=== PATIENT | male | born 1995 | race Caucasian/White ===

== ENCOUNTER 2017-07-04 07:28 | Inpatient (IN) | payer BC, OTHER ==
[~2017-07-04] VITALS: Ht 175.3 cm; Wt 74.8 kg
[2017-07-04] MEDS ORDERED: LORAZEPAM 1 MG TABLET PO PRN ×2 (22:15)
[2017-07-04] MEDS ORDERED: LOPERAMIDE HCL 2 MG CAPSULE PO PRN ×2 (22:15)
[2017-07-04] MEDS ORDERED: ONDANSETRON 4 MG/2 ML VIAL IM PRN (22:15)
[2017-07-04] MEDS ORDERED: MAGNESIUM HYDROXIDE 30 ML LIQUID UDC PO PRN (22:15)
[2017-07-04] MEDS ORDERED: LORAZEPAM 2 MG/1 ML VIAL IM PRN (22:15)
[2017-07-04] MEDS ORDERED: CLONIDINE HCL 0.1 MG TABLET PO PRN (22:15)
[2017-07-04] MEDS ORDERED: MAG HYDROX/AL HYDROX/SIMETH 30 ML LIQUID UDC PO PRN (22:15)
[2017-07-04] MEDS ORDERED: THIAMINE HCL 200 MG/2 ML VIAL IM ONE (22:15)
[2017-07-04] MEDS ORDERED: MIRALAX 17 GM POWD.PACK PO PRN (22:15)
[2017-07-04] MEDS ORDERED: diphenhydrAMINE 50 MG CAPSULE PO PRN (22:15)
[2017-07-04 22:50] VITALS: BP 133/84
--- NOTE | 2017-07-04 22:50 | NUR ---
INTAKE ASSESSMENT BP:133/84, HR:65, RR:16, SpO2:96% on RA, T:98.0 Pt is in stable condition and is able to be admitted on the unit. Unit protocols regarding medications and vital signs every 4 hours were explained. Pt verbalized understanding. Will continue admission upon arrival on the unit.
[2017-07-04 23:03] LABS: BASOPHILS % (AUTO) 0.5 % (0.0-2.0); EOSINOPHILS # (AUTO) 0.1 K/uL (0.0-0.7); EOSINOPHILS % (AUTO) 1.7 % (0.0-7.0); HEMATOCRIT 41.7 % (36.7-47.1); HEMOGLOBIN 14.5 g/dL (12.5-16.3); LYMPHOCYTES # (AUTO) 2.4 K/uL (20.0-40.0); LYMPHOCYTES % (AUTO) 31.2 % (20.5-51.5); MEAN CORPUSCULAR HEMOGLOBIN 30.6 uug (23.8-33.4); MEAN CORPUSCULAR HGB CONC 35 g/dL (32.5-36.3); MEAN CORPUSCULAR VOLUME 87.9 fL (73.0-96.2); MONOCYTES # (AUTO) 0.8 K/uL (2.0-10.0); MONOCYTES % (AUTO) 10.4 % (0.0-11.0); NEUTROPHILS # (AUTO) 4.3 K/uL (1.8-8.9); NEUTROPHILS % (AUTO) 56.2 % (38.5-71.5); PLATELET COUNT (AUTO) 310 K/uL (152-348); RED BLOOD CELL COUNT(AUTO) 4.74 MIL/uL (4.06-5.63); WHITE BLOOD COUNT (AUTO) 7.7 K/uL (3.6-10.2)
[2017-07-04 23:23] LABS: ALANINE AMINOTRANSFERASE 47 U/L (16-63); ALKALINE PHOSPHATASE 82 U/L (50-136); AMYLASE 61 U/L (25-115); ASPARTATE AMINOTRANSFERASE 33 U/L (15-37); BILIRUBIN,TOTAL 0.6 mg/dL (0.2-1.0); CARBON DIOXIDE 31 mmol/L (21-32); CHLORIDE 100 mmol/L (98-107); CREATININE 0.9 mg/dL (0.6-1.3); GLUCOSE 105 mg/dL (74-106); MAGNESIUM 1.7 mg/dL (1.8-2.4); POTASSIUM 3.9 mmol/L (3.5-5.1); TOTAL PROTEIN, SERUM 7.8 g/dL (6.4-8.2); UREA NITROGEN, BLOOD 14 mg/dL (7-18)
[2017-07-04] MEDS ORDERED: LORAZEPAM 1 MG TABLET PO SCH (23:30)
[2017-07-04 23:34] LABS: ETHANOL < 3 MG/DL (0-0)
[2017-07-04 23:37] LABS: *AMPHETAMINE, URINE NEGATIVE (NEGATIVE); *BARBITURATE, URINE NEGATIVE (NEGATIVE); *CANNABINOID, URINE POSITIVE (NEGATIVE); *COCCAINE, URINE POSITIVE (NEGATIVE); *OPIATE, URINE NEGATIVE (NEGATIVE); *PHENCYCLIDINE SCREEN,URINE NEGATIVE (NEGATIVE)
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
[2017-07-04] MEDS: IBUPROFEN 400 MG TABLET PO PRN (23:46)
[2017-07-04] MEDS: ONDANSETRON ODT 4 MG TAB.RAPDIS SL PRN (23:47)
--- NOTE | 2017-07-04 23:47 | NUR ---
PRN ZOFRAN/MOTRIN Pt complains of nausea and bilateral foot pain 7/10. No open wounds, or swelling noted on pt's feet. PRN Zofran and Motrin administered as ordered. Will continue to monitor effectiveness.
[2017-07-05] VITALS: BP 135/81
[2017-07-05] MEDS ORDERED: CLON2TAB4 PO (00:47)
--- NOTE | 2017-07-05 00:47 | NUR ---
PRN REASSESSMENT Medications effective. Pt is lying in bed with eyes closed noted to be asleep. No facial grimacing noted. Breathing even and unlabored. Safety measures in place. Will continue to monitor.
[2017-07-05 04:00] VITALS: BP 125/78
--- NOTE | 2017-07-05 07:03 | NUR ---
END OF SHIFT Pt is a 22 year old male patient. He remains alert and oriented x4. He was noted to be drowsy, anxious, restless, agitated, nauseous and fatigued during shift. He received PRN Motrin and Zofran. He slept a total of 5 hrs, Intake: 355mL, Void: x1, BM:0, CIWA:9. Breathing is even and unlabored. Safety measures in place. Endorsed to AM shift.
--- NOTE | 2017-07-05 07:45 | NUR ---
START OF SHIFT Endorse rcvd from ongoing nurse, client is in bed, under the blankets, in a position, client is a/o x 3, he presents with flushed face, moist skin, fine tremors, light bothers him. He stated, I feel like shit, my feet are killing me, I cant stop moving them, I am cold and sweaty, have no appetite and my head feels weird, like a balloon, just really weird, and Im in pain when I turn on my left side Client noted with large purple, yellowish bruise on L elbow with a dry scab in the middle of it. Client able to perform full range of motion, but states, I am not able to lift anything, because it gets to painful. Encourage client to increase PO fluid as tolerated to maintain rehydration and facilitate detox. Encourage client to attend group therapy for skills to maintain sober. Overnight care PRN Zofran 4mg SL for nausea, Motrin 600mg PO for pain, noted effective. Client slept 5 hrs. Last CIWA 9 @ 2400. Client admitted for medically supervised withdrawal from alcohol and benzodiazepines, 4 day Ativan taper to start this am at 0900. Call light within reach. Seizure precautions rendered.
[2017-07-05 08:00] VITALS: BP 123/75
[2017-07-05] MEDS ORDERED: MAGNESIUM OXIDE 400 MG TABLET PO ONE (09:00)
[2017-07-05] MEDS ORDERED: TUBERCULIN,PURIF.PROT.DERIV. 5 TU/0.1 ML TEST ID ONE (09:00)
[2017-07-05] MEDS ORDERED: LORAZEPAM 1 MG TABLET PO SCH (09:00)
--- NOTE | 2017-07-05 09:36 | NUR ---
PPD test administered to L forearm, client tolerated well.
[2017-07-05] MEDS: FOLIC ACID 1 MG TABLET PO SCH (09:37)
[2017-07-05] MEDS: MULTIVITAMINS,THERAPEUTIC TABLET PO SCH (09:37)
[2017-07-05] MEDS: THIAMINE HCL 100 MG TABLET PO SCH (09:37)
--- NOTE | 2017-07-05 09:46 | NUR ---
PRN Ativan 1mg PO administered for anxiety, irritability, nausea, fine tremors, sweats, sensitivity to light and noise, CIWA 12. Call light within reach.
--- NOTE | 2017-07-05 10:46 | NUR ---
Reassess PRN Ativan 1mg, client is in bed, watching TV, he appears less anxious. He reports feeling a little bit better. CIWA 5.
[2017-07-05 12:00] VITALS: BP 118/73
--- NOTE | 2017-07-05 13:19 | NUR ---
XR of L elbow left elbow contusion; rule out fracture, dislocation
[2017-07-05] MEDS: LORAZEPAM 1 MG TABLET PO SCH ×2 (16:20→20:41)
[2017-07-05 16:24] VITALS: BP 99/57
[2017-07-05] MEDS: IBUPROFEN 400 MG TABLET PO PRN (16:25)
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
--- NOTE | 2017-07-05 17:25 | NUR ---
Reassess PRN Maalox 30mg, Motrin 400mg client reports relief from heartburn and pain 0/10 on L side of head.
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
--- NOTE | 2017-07-05 19:23 | NUR ---
END OF SHIFT Endorsed client to incoming nurse, client is a/o x 4, he remained in his room, prefers dim light, he continues to present with anxious mood, flat affect, fine tremors, chills, sweats, restless legs, and decrease appetite. Adequate PO fluid intake 1182mL, void x 2. LBM 07/04/17. Client not compliant with group therapy d/t withdrawal symptoms. Last CIWA 14 @ 1600. PRN maalox 30ml PO for heartburn, Motrin for pain L side of scalp, noted effective. Call light within reach.
--- NOTE | 2017-07-05 19:30 | NUR ---
START OF SHIFT Received 22 year old male patient. Pt noted to be anxious, worried, and depressed. Pt complains of nausea and appetite loss and stated " I can't keep anything down." Pt also complains of headache, and pins and needles on both feet. Per endorsement, pt received X ray to left elbow. Resulted with swelling, no fracture or dislocation was identified. Pt received PRN Maalox. Pt is alert and oriented x4, breathing is even and unlabored. Safety measures in place. Will continue to monitor.
[2017-07-05 20:00] VITALS: BP 140/81
[2017-07-05] MEDS: GABAPENTIN 300 MG CAPSULE PO SCH (20:40)
[2017-07-05] MEDS: QUETIAPINE FUMARATE 25 MG TABLET PO PRN (20:41)
[2017-07-05] MEDS: ONDANSETRON ODT 4 MG TAB.RAPDIS SL PRN (20:42)
[2017-07-05] MEDS: ACETAMINOPHEN 325 MG TABLET PO PRN (20:42)
--- NOTE | 2017-07-05 20:42 | NUR ---
PRN SEROQUEL, TYLENOL, ZOFRAN Pt complains of inability to sleep, headache 8/10 and nausea with one episode of vomiting. PRN Seroquel, Tylenol and Zofran administered as ordered. Safety measures in place. Will continue to monitor effectiveness.
--- NOTE | 2017-07-05 21:42 | NUR ---
PRN REASSESSMENT PRN medications effective. Pt is lying in bed with eyes closed noted to be asleep. Breathing is even and unlabored. Safety measures in place. Will continue to monitor.
[2017-07-06] VITALS: BP 112/61
--- NOTE | 2017-07-06 04:00 | NUR ---
VITALS REFUSED, CIWA DEFERRED 0400 vitals refused by pt. CIWA deferred d/t pt lying in bed with eyes closed noted to be asleep. Breathing is even and unlabored, safety measures in place. Will continue to monitor.
--- NOTE | 2017-07-06 07:04 | NUR ---
END OF SHIFT Pt is a 22 year old male patient. Pt remains alert and oriented x4. Pt had complaints of nausea with episode of vomiting, headache, anxiety, and insomnia. He received PRN Seroquel, Zofran and Tylenol. He slept a total of 9 hrs, Intake: 1,296mL, Void: x1, BM:0, CIWA: 11. Breathing is even and unlabored. Safety measures in place. Endorsed to AM shift.
[2017-07-06 07:06] LABS: HEPATITIS B SURFACE AG Negative (Negative)
--- NOTE | 2017-07-06 07:34 | NUR ---
Start of shift- Rcvd endorsement from ongoing nurse. 22 y/o male admitted for benzo, cocaine, and marijuana dependency. Last CIWA @1999 was 11. Pt slept 9 hours. Pt arousable to verbal commands, he is in bed. Resp even and unlabored. Last night he had c/o nausea with episode of vomiting, headache, anxiety, and insomnia. He received PRN Seroquel, Zofran and Tylenol. Pt had uneventful night. NKA, FULL CODE, regular diet. All safety measures in place. Seizure and fall precautions. Bed lowest/locked position, siderails upX2 padded, call light within reach. Will continue to monitor.
[2017-07-06 08:00] VITALS: BP 115/74
[2017-07-06] MEDS: FLUOXETINE HCL 20 MG CAPSULE PO SCH (08:25)
[2017-07-06] MEDS: FOLIC ACID 1 MG TABLET PO SCH (08:25)
[2017-07-06] MEDS: GABAPENTIN 300 MG CAPSULE PO SCH ×3 (08:26→20:41)
[2017-07-06] MEDS: LORAZEPAM 1 MG TABLET PO SCH ×3 (08:26→20:41)
[2017-07-06] MEDS: THIAMINE HCL 100 MG TABLET PO SCH (08:26)
[2017-07-06] MEDS: MULTIVITAMINS,THERAPEUTIC TABLET PO SCH (08:27)
[2017-07-06] MEDS ORDERED: LORAZEPAM 1 MG TABLET PO SCH (09:00)
[2017-07-06 12:00] VITALS: BP_SYST 125; BP_SYST 134; BP_DIAS 70; BP_DIAS 73
--- NOTE | 2017-07-06 12:15 | NUR ---
PRN Motrin 400 mg PO pain. c/o headache #8/
[2017-07-06] MEDS: IBUPROFEN 400 MG TABLET PO PRN (12:17)
--- NOTE | 2017-07-06 12:24 | NUR ---
CLient prompted to go to groups.
[2017-07-06] MEDS: QUETIAPINE FUMARATE 25 MG TABLET PO PRN ×3 (12:51→20:42)
--- NOTE | 2017-07-06 12:53 | NUR ---
PRN Seroquel 25 mg po for agitation. Pt reports feeling servely agitated and was seen crying.
--- NOTE | 2017-07-06 13:10 | NUR ---
Reassess Viry pt states headache pain now #5-6/10. He feels a little better.
--- NOTE | 2017-07-06 13:55 | NUR ---
Reassess Seroquel, pt states he feels better less agitated. Medication effective.
[2017-07-06 16:00] VITALS: BP 105/57
--- NOTE | 2017-07-06 18:06 | NUR ---
PRN Seroquel 25 mg PO pt c/o severe agitation
--- NOTE | 2017-07-06 18:34 | NUR ---
End of shift- 22 y/o male admitted for benzo, cocaine, and marijuana dependency. Last CIWA @1600 was 3. Pt is on 4 day Ativan taper, tolerating well. He received PRN medications per doctors orders with good effects. Pt did not participate in group therapy. Pt was withdrawn and isolative. Pt was agitated and tearful with depressed mood and flat affect in the afternoon. Adequate PO fluid intake 1300 ml, void X 2, no BM. Pt reports NKA, FULL CODE, regular diet. All safety measures in place. Seizure and fall precautions. Bed lowest/locked position, side rails upX2 padded, call light within reach. Will endorse to on coming shift.
--- NOTE | 2017-07-06 18:43 | NUR ---
Reassess Seroquel. Pt states he feels less agitated and better. Pt expresssed frustration with the rules, not being able to access phone, his bank account, and having to keep his toiletries at nursing station.
--- NOTE | 2017-07-06 19:30 | NUR ---
START OF SHIFT Received 22 year old male patient admitted on 07/04/17. Pt is noted to be angry, anxious, and irritable. Pt verbalized he is upset about not being able to have some of his personal items such as his jewelry. He complains of right foot achy radiating pain and reports he has been experiencing this pain for 1 month. Pt reports it is painful when he walks and is observed to be limping with steady gait. Per endorsement, pt received PRN Motrin, and Seroquel x2. He is scheduled to have BMP and magnesium labs done in the AM. Pt is alert and oriented x4, breathing is even and unlabored. Safety measures in place. Will continue to monitor.
[2017-07-06 20:00] VITALS: BP 140/89
--- NOTE | 2017-07-06 20:42 | NUR ---
PRN SEROQUEL Pt complains of inability to fall asleep. PRN Seroquel administered as ordered. Safety measures in place. Will continue to monitor effectiveness.
--- NOTE | 2017-07-06 21:42 | NUR ---
PRN REASSESSMENT PRN medication is effective. Pt is lying in bed with eyes closed noted to be asleep. Breathing is even and unlabored. Safety measures in place. Will continue to monitor.
[2017-07-07] VITALS: BP 107/60
--- NOTE | 2017-07-07 04:00 | NUR ---
VITALS REFUSED, CIWA DEFERRED 0400 vitals refused. CIWA deferred d/t pt lying in bed with eyes closed noted to be asleep. Breathing is even and unlabored. Safety measures in place. Will continue to monitor.
--- NOTE | 2017-07-07 07:05 | NUR ---
END OF SHIFT Pt is a 22 year old male patient. Pt remains alert and oriented x4. Pt was noted with anxiety and agitation at the start of shift. After his personal items were brought up, pt was able to calm down. He complained of difficulty falling asleep and received PRN Seroquel at 2041. He slept a total of 7 hrs, Intake: 500mL, Void: x1, BM:0, CIWA:9. Breathing is even and unlabored. Safety measures in place. Endorsed to AM shift.
[2017-07-07] MEDS: ACETAMINOPHEN 325 MG TABLET PO PRN ×2 (07:28→20:44)
--- NOTE | 2017-07-07 07:28 | NUR ---
START OF SHIFT & PRN Tylenol 650mg PO Endorse rcvd from ongoing nurse, client is sitting in bed, he avoids eye contact, a/o x 3, he continually tap his feet on the floor, stating, "My feet hurt, I feel pins and needles on them, could not sleep because of that feeling." He appears anxious, flat affect, tremors felt not observed, flushed face, and moist skin. He reports decrease appetite, restless legs, feelings of despair, fatigue, and headache 5/10. PRN Tylenol 650mg PO administered for DODSON. Encourage client to verbalize feelings, he stated, "Sometimes I just feel numb, like nothing matters." Client denies any SI/HI. Encourage client to attend group therapy for skills to maintain sober. Client reports tenderness on L elbow with large purple, yellowish bruise and dry scab, full range of motion noted. Encourage client to increase PO fluid as tolerated to maintain rehydration and facilitate detox. Overnight care PRN Seroquel 50mg PO for inability to sleep, client slept 5 hrs. Last CIWA 9 @ 1999. Client admitted for medically supervised withdrawal from alcohol and benzodiazepines, Third of 4 day Ativan taper, tolerating well. Call light within reach. Seizure precautions rendered.
[2017-07-07 08:10] VITALS: BP 123/64
[2017-07-07] MEDS: GABAPENTIN 300 MG CAPSULE PO SCH ×3 (08:22→20:45)
[2017-07-07] MEDS: FOLIC ACID 1 MG TABLET PO SCH (08:23)
[2017-07-07] MEDS: LORAZEPAM 1 MG TABLET PO SCH ×2 (08:23→20:44)
[2017-07-07] MEDS: THIAMINE HCL 100 MG TABLET PO SCH (08:23)
[2017-07-07] MEDS: FLUOXETINE HCL 20 MG CAPSULE PO SCH (08:23)
[2017-07-07] MEDS: MULTIVITAMINS,THERAPEUTIC TABLET PO SCH (08:23)
--- NOTE | 2017-07-07 08:28 | NUR ---
Reassess Tylenol 650mg, client reports relief from DODSON 0/10. Call light within reach.
[2017-07-07] MEDS ORDERED: LORAZEPAM 1 MG TABLET PO SCH (09:00)
--- NOTE | 2017-07-07 09:36 | NUR ---
Zero induration noted at L forearm PPD test
[2017-07-07 10:30] LABS: CREATININE 0.9 mg/dL (0.6-1.3); MAGNESIUM 1.8 mg/dL (1.8-2.4); POTASSIUM 4.1 mmol/L (3.5-5.1)
[2017-07-07 12:15] VITALS: BP_SYST 105; BP_SYST 126; BP_DIAS 57; BP_DIAS 80
[2017-07-07 16:58] VITALS: BP 120/77
--- NOTE | 2017-07-07 19:00 | NUR ---
END OF SHIFT Endorsed client to incoming nurse, client is in his room, he tends to isolate, a/o x 4, he continues to present with anxious mood, flat affect. Client did not participate in group therapy stating, "I don't see the point." Additional therapy needed to discuss situation. Adequate PO fluid intake 1892mL, void x 4. Last CIWA 9 @ 1600. PRN Tylenol 650mg PO for DODSON, noted effective. Call light within reach.
[2017-07-07 20:00] VITALS: BP 136/85
--- NOTE | 2017-07-07 20:00 | NUR ---
START OF SHIFT NOTE RECEIVED REPORT FROM DAY SHIFT NURSE. PATIENT IS A 22 YEAR OLD MALE ADMITTED FOR ETOH/XANAX WITHDRAWAL. PATIENT IS ON 3RD DAY OF HIS 4 DAY ATIVAN TAPER. PATIENT HAS LEFT ELBOW BRUISE, SWELLING UPON ADMISSION. X-RAY DONE AND WAS NEGATIVE. PATIENT DID NOT PARTICIPATE IN GROUPS. PRN TYLENOL GIVEN . PPD READ TODAY AND WAS NEGATIVE. . LAST CIWA 9. RECEIVED PATIENT IN THE ROOM, PATIENT ANXIOUS, SAD, HE STATES THAT HE MISSED HIS FAMILY, HE C/O HEADACHE AND LEFT ARM PAIN 3/10 , HOT AND COLD SWEATS AND FLUSHED. REASSURANCE PROVIDED. SAFETY MEASURES IN PLACE. CALL LIGHT IN REACH. WILL CONTINUE TO MONITOR.
--- NOTE | 2017-07-07 20:44 | NUR ---
PRN TYLENOL AND SEROQUEL ADMINISTRATION PATIENT C/O HEADACHE/ELBOW AND REQUESTS FOR SLEEP AID. WILL MONITOR FOR EFFECTIVENESS
[2017-07-07] MEDS: QUETIAPINE FUMARATE 25 MG TABLET PO PRN (20:46)
--- NOTE | 2017-07-07 21:44 | NUR ---
PRN TYLENOL RE-ASSESSMENT PATIENT STATES TYLENOL HELPFUL AND EFFECTIVE. NO PAIN AT THIS TIME
--- NOTE | 2017-07-07 22:30 | NUR ---
PRN SEROQUEL RE-ASSESSMENT PATIENT IN BED WITH EYES CLOSED. RESPIRATION EVEN AND UNLABORED. SAFETY MEASURES IN PLACE. CALL LIGHT IN REACH . WILL CONTINUE TO MONITOR
--- NOTE | 2017-07-08 | NUR ---
CIWA DEFERRED PATIENT IN BED WITH EYES CLOSED. VS REFUSED. RESPIRATION EVEN AND UNLABORED. SAFETY MEASURES IN PLACE. CALL LIGHT IN REACH . WILL CONTINUE TO MONITOR
--- NOTE | 2017-07-08 07:13 | NUR ---
END OF SHIFT NOTE PATIENT SLEPT 7 HOURS. FLUID INTAKE 1,500 ML. VOIDED X 2. NO BM. MONITORED PATIENT THROUGHOUT SHIFT. MEDICATION GIVEN ORDERED, TOLERATED WELL AND NO ADVERSE REACTION. PATIENT WAS C/O HEADACHE AND LEFT ELBOW PAIN, PRN TYLENOL GIVEN. PATIENT REQUESTED FOR SLEEP AID, PRN SEROQUEL GIVEN. PATIENT IN THE ROOM MOST OF THE SHIFT, TENDS TO BE ISOLATIIVE. PATIENT WAS SAD AND MISSING HIS FAMILY, REASSURANCE PROVIDED. SAFETY MEASURES IN PLACE. CALL LIGHT IN REACH. WILL CONTINUE TO MONITOR. LAST CIWA 8.
--- NOTE | 2017-07-08 07:47 | NUR ---
START OF SHIFT RECEIVED PT LAYING IN BED, A/OX4, RESPIRATIONS EVEN AND UNLABORED. PT REPORTS SWEATING, FEELING HOT/COLD INTERMITTENTLY, ANXIETY AND RESTLESSNESS. PT C/O LEFT ELBOW PAIN. ENCOURAGED PT TO INCREASE FLUIDS TO PROMOTE HYDRATION. SIDE RAILS UPX2, BED IN LOWEST POSITION. ALL SAFETY MEASURES IN PLACE. WILL CONTINUE TO MONITOR.
[2017-07-08 08:00] VITALS: BP 104/64
[2017-07-08] MEDS: FOLIC ACID 1 MG TABLET PO SCH (08:45)
[2017-07-08] MEDS: MULTIVITAMINS,THERAPEUTIC TABLET PO SCH (08:45)
[2017-07-08] MEDS: FLUOXETINE HCL 20 MG CAPSULE PO SCH (08:45)
[2017-07-08] MEDS: THIAMINE HCL 100 MG TABLET PO SCH (08:45)
[2017-07-08] MEDS: GABAPENTIN 300 MG CAPSULE PO SCH ×3 (08:46→20:20)
[2017-07-08] MEDS: IBUPROFEN 400 MG TABLET PO PRN (08:46)
--- NOTE | 2017-07-08 08:46 | NUR ---
PRN IBUPROFEN 400 MG PO PRN GIVEN FOR PAIN IN THE L ELBOW AND R FOOT/ANKLE PAIN. WILL CONTINUE TO MONITOR.
[2017-07-08] MEDS ORDERED: LORAZEPAM 1 MG TABLET PO SCH ×2 (09:00)
--- NOTE | 2017-07-08 09:46 | NUR ---
REASSESSMENT PT REPORTED MED WAS EFFECTIVE; PAIN NOW 5/10. WILL CONTINUE TO MONITOR.
[2017-07-08 12:00] VITALS: BP 129/89
[2017-07-08 16:00] VITALS: BP 138/83
[2017-07-08] MEDS ORDERED: GABA-534 PO (18:16)
[2017-07-08] MEDS ORDERED: IBUP-1953 PO (18:16)
--- NOTE | 2017-07-08 19:31 | NUR ---
END OF SHIFT LAST CIWA 7 @1600. PT HAD FINAL ATIVAN DOSE OF TAPER THIS AM AND TOLERATED WELL. PT REPORTS HAVING ANXIETY MAINLY FROM THINKING ABOUT "LIFE AFTER DETOX" BUT VERBALIZED HE IS READY FOR DISCHARGE TO CONTINUE TREATMENT. ALL SAFETY MEASURES IN PLACE. WILL GIVE ENDORSEMENT TO ENGINE INSPECTOR NURSE.
[2017-07-08 20:00] VITALS: BP 130/81
--- NOTE | 2017-07-08 20:00 | NUR ---
START OF SHIFT NOTE RECEIVED REPORT FROM DAY SHIFT NURSE. PATIENT IS A 22 YEAR OLD MALE ADMITTED FOR ETOH/XANAX WITHDRAWAL. PATIENT COMPLETED ATIVAN TAPER, TOLERATED WELL AND NO ADVERSE REACTION NOTED. PATIENT IS MEDICALLY CLEARED TO BE DISCHARGE TOMORROW. PATIENT DID NOT PARTICIPATE IN GROUPS, STILL CONTINUE TO ENCOURAGE. PRN MOTRIN GIVEN FOR LEFT ELBOW AND RIGHT FOOT/ANKLE PAIN DURING THE DAY. LAST CIWA 7. RECEIVED PATIENT IN THE ROOM. PATIENT WITH FLAT AFFECT. PATIENT STATES MY MOM AND DAD CALLED AND STATES "I AM RELIEVED THAT I KNOW MY FAMILY ARE OK". PATIENT C/O LEFT ELBOW AND RIGHT FOOT/ANKLE PAIN. POSITIVE ENCOURAGEMENT GIVEN. SAFETY MEASURES IN PLACE. CALL LIGHT IN REACH. WILL CONTINUE TO MONITOR.
[2017-07-08] MEDS: ACETAMINOPHEN 325 MG TABLET PO PRN (20:20)
[2017-07-08] MEDS: QUETIAPINE FUMARATE 25 MG TABLET PO PRN (20:21)
--- NOTE | 2017-07-08 20:21 | NUR ---
PRN TYLENOL AND SEROQUEL ADMINISTRATION PATIENT C/O RIGHT ELBOW AND RIGHT FOOT/ANKLE PAIN 5/10. PATIENT REQUESTS FOR SLEEP AID. WILL MONITOR FOR EFFECTIVENESS
--- NOTE | 2017-07-08 21:21 | NUR ---
PRN TYLENOL RE-ASSESSMENT PATIENT STATES TYLENOL HELPFUL AND EFFECTIVE. NO PAIN AT THIS TIME.
--- NOTE | 2017-07-08 23:00 | NUR ---
PRN SEROQUEL RE-ASSESSMENT PATIENT IN BED WITH EYES CLOSED. RESPIRATION EVEN AND UNLABORED. SAFETY MEASURES IN PLACE. CALL LIGHT IN REACH. WILL CONTINUE TO MONITOR.
--- NOTE | 2017-07-09 | NUR ---
CIWA DEFERRED PATIENT IN BED WITH EYES CLOSED. VS REFUSED. CIWA DEFERRED. RESPIRATION EVEN AND UNLABORED. SAFETY MEASURES IN PLACE. CALL LIGHT IN REACH. WILL CONTINUE TO MONITOR .
--- NOTE | 2017-07-09 07:24 | NUR ---
END OF SHIFT NOTE PATIENT SLEPT 7 HOURS. FLUID INTAKE 1,250 ML. VOIDED X 2. NO BM. MONITORED THROUGHOUT SHIFT. PATIENT IS DISCHARGING TODAY. PATIENT IN THE ROOM MOST OF THE SHIFT, HE TENDS TO BE ISOLATIVE. PATIENT DID NOT PARTICIPATE IN GROUPS. MEDICATION GIVEN ORDERED, COMPLIANT , NO ADVERSE REACTION. PATIENT C/O PAIN ON LEFT ELBOW AND RIGHT FOOT/ANKLE, PRN TYLENOL GIVEN, HE REQUESTED FOR SLEEP AID, PRN SEROQUEL GIVEN. SAFETY MEASURES IN PLACE. CALL LIGHT IN REACH. WILL CONTINUE TO MONITOR. LAST CIWA 2.
--- NOTE | 2017-07-09 07:30 | NUR ---
Start Of Shift Received patient from settlement technician nurse, Pt admitted for ETOH and Xanax withdrawals, pts last CIWA 2 taken at 4am. Pt received PRN Tylenol and Seroquel last night for pain and insomnia, medication effective, pt was able to sleep for 7 hours last night Pt completed his 4 day Ativan taper and is ready for D/C today. Pt is in his room laying in bed with eyes open watching TV. Pt does not present with any major withdrawal symptoms. Pt verbalized being ready for D/C. will continue to monitor pt and provide care untill pt is discharged.
[2017-07-09 08:00] VITALS: BP 127/86
[2017-07-09] MEDS ORDERED: LORAZEPAM 1 MG TABLET PO SCH (09:00)
[2017-07-09] MEDS: GABAPENTIN 300 MG CAPSULE PO SCH (09:21)
[2017-07-09] MEDS: MULTIVITAMINS,THERAPEUTIC TABLET PO SCH (09:21)
[2017-07-09] MEDS: FOLIC ACID 1 MG TABLET PO SCH (09:21)
[2017-07-09] MEDS: THIAMINE HCL 100 MG TABLET PO SCH (09:21)
[2017-07-09] MEDS: FLUOXETINE HCL 20 MG CAPSULE PO SCH (09:21)
--- NOTE | 2017-07-09 10:11 | NUR ---
Discharge note Pt has been discharged pts last CIWA 1 taken at 8am, all paperwork signed and explained, pt left the facility with all of his belongings.
== END 2017-07-09 09:47 | disposition other institution (70) | DRG 895 ==
LOC: SRC 22:01
PROVIDERS: ADMIT Internal Medicine; ATTEND Internal Medicine
PROC: HZ2ZZZZ Detoxification Services for Substance Abuse Treatment (ICD-10-PCS; principal; 2017-07-04)
PROC: HZ31ZZZ Individual Counseling for Substance Abuse Treatment, Behavioral (ICD-10-PCS; 2017-07-06)
DX: F10.239 Alcohol dependence with withdrawal, unspecified (principal); F33.3 Major depressive disorder, recurrent, severe with psychotic symptoms; E83.42 Hypomagnesemia; F13.239 Sedative, hypnotic or anxiolytic dependence with withdrawal, unspecified; Y90.0 Blood alcohol level of less than 20 mg/100 ml; F14.10 Cocaine abuse, uncomplicated; Z79.899 Other long term (current) drug therapy; S50.02XA Contusion of left elbow, initial encounter; Y04.0XXA Assault by unarmed brawl or fight, initial encounter; Y92.89 Other specified places as the place of occurrence of the external cause; F41.9 Anxiety disorder, unspecified; Z86.61 Personal history of infections of the central nervous system; Z81.1 Family history of alcohol abuse and dependence; M77.51 Other enthesopathy of right foot and ankle
CPT/HCPCS: 36415; 73080; 80307; 80346; 80349; 80353; 83735; 85025; 86580; 86592; 86705; 86803; 87340; 87806; A4663; G0480; J3411; Q0162